=== PATIENT | male | born 1950 | race Caucasian/White ===

== ENCOUNTER 2018-06-03 00:53 | Outpatient (CLI) | payer MEDICARE, SELFPAY ==
[2018-06-03 08:11] LABS: ALT 17 U/L (12-78); AST 21 U/L (15-37); Albumin 2.8 g/dL (3.4-5.0); Alkaline Phosphatase 93 U/L (46-116); Anion Gap 12.5 mmol/L (3-11); BUN 31 mg/dL (7-18); Bilirubin, Total 0.8 mg/dL (0.2-1.0); CO2 22.5 mmol/L (21.0-32.0); CREATININE 0.79 mg/dL (0.70-1.30); Calcium 8.2 mg/dL (8.5-10.1); Chloride 97 mmol/L (98-107); Glucose 89 mg/dL (70-100); Potassium 4.3 mmol/L (3.5-5.1); Sodium 132 mmol/L (136-145); Total Protein 6.6 g/dL (6.4-8.2)
--- NOTE | 2018-06-03 08:44 | DI.CT_ITS ---
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 METASTATIC DISEASE, WT LOSS CORRECTED REPORT CHEST, ABDOMEN AND PELVIC CT: CT scan of the chest, abdomen and pelvis was performed following the uneventful administration of intravenous and oral contrast material. There are no priors for direct comparison. Comparison is made with report from [facility] dated 06/2017. ABDOMEN AND PELVIS: The liver is normal in size. No evidence of a hepatic mass is present. The portal, superior mesenteric and splenic veins are patent. The gallbladder is negative. There is no biliary ductal dilatation. The pancreas is unremarkable as is the spleen. There is nodularity of the left adrenal gland measuring 1.3 cm. The right adrenal gland is unremarkable. The kidneys show normal and symmetric enhancement. No evidence of a solid renal mass or obstruction. The urinary bladder is intact. The reproductive organs are unremarkable. There is atherosclerosis of the abdominal aorta but no aneurysmal dilatation is present. No significant pneumoperitoneum is seen. There may be a trace amount of free fluid in the right paracolic gutter. There is a large heterogeneous mass involving the cecum with significant bowel wall thickening. The whole mass-like area measures 9.1 cm. transverse by 7 cm. AP by 6.9 cm. craniocaudad. The remainder of the colon is decompressed. There is marked thickening of the wall of the small bowel beginning in the jejunum and extending to the ileocecal junction. There is diffuse thickening of the wall of the dilated small bowel. There appear to be mildly enlarged lymph nodes in the right lower quadrant. The largest measures 2.6 cm. by 1.7 cm. There are degenerative changes seen in the spine. No aggressive osseous lesion is identified. There is spondylolysis at L 5 and grade I spondylolisthesis of L 5 on S 1. IMPRESSION: 1. Obstructing soft tissue mass in the cecum highly suggestive of carcinoma. 2. Marked dilatation of the small bowel proximal to the cecal mass suggesting obstruction. 3. Left adrenal nodule. 4. Trace amount of abdominal free fluid in the right paracolic gutter. CHEST: There is calcification of the thoracic aorta. Heart size is within normal limits. No significant pericardial effusion is present. No significant thoracic adenopathy is identified. No pleural effusion or pneumothorax is identified. No pulmonary nodules are seen. The tracheobronchial tree is unremarkable. There is scarring seen in the lungs. No focal consolidating infiltrates are seen. Degenerative changes are seen in the spine. No aggressive osseous lesions are seen. IMPRESSION: No evidence of thoracic metastatic disease. Correction made to 4th impression from cul-de-sac to paracolic gutter.
[2018-06-03] MEDS: Omnipaque 350 MG/ML 100 ML BTL IJ (08:54)
[2018-06-03] MEDS: Omnipaque 350 MG/ML 50 ML BTL PO (08:54)
[2018-06-03] MEDS: Breeza Beverage 473 ML BTL PO (08:55)
== END 2018-06-03 01:13 ==
PROVIDERS: Visit Provider Colon & Rectal Surgery
DX: C18.0 Malignant neoplasm of cecum (principal); R63.4 Abnormal weight loss; K59.39 Other megacolon; E27.8 Other specified disorders of adrenal gland; R59.0 Localized enlarged lymph nodes
CPT/HCPCS: 74177; 80053; 71260; J3490; Q9967

== ENCOUNTER 2018-08-10 01:08 | Outpatient (CLI) | payer MEDICARE, SELFPAY ==
--- NOTE | 2018-08-10 09:30 | DI.CT_ITS ---
SYMPTOMS/DIAGNOSIS: COLON CA, S/P RT HEMICOLECTOMY RISING TUMOR MARKER, RESTAGING, C18.2 CT OF THE CHEST, ABDOMEN AND PELVIS: Comparison is made with [id number]. Images were performed for the clavicles through the ischial tuberosities after oral and IV contrast. CHEST CT: The aorta and pulmonary arteries are well opacified with IV contrast. No pulmonary emboli or aortic dissection is seen. There are pleural or pericardial effusions. Mild scarring is seen in the anterior right upper lobe. No pulmonary nodules, adenopathy or infiltrates are seen. No suspicious bony lesions are identified. Degenerative changes are again noted in the spine. IMPRESSION: No evidence of metastatic disease in the chest or other acute abnormality. ABDOMEN AND PELVIS CT: There is now a right sided ileostomy. There is no evidence of obstruction. Diverticulosis is noted in the lower descending and sigmoid colon. The liver, spleen, pancreas and right adrenal are unremarkable. Prominence of the left adrenal gland appears stable. There is a question of sludge in the gallbladder. No calcified stones, wall thickening or biliary dilatation is seen. The pancreas is unremarkable. The kidneys and spleen appear normal. There is now enlarged aortocaval adenopathy. A few small lymph nodes are seen to the left of the aorta and at the level of the head of the pancreas. The prostate appears mildly enlarged. The bladder is unremarkable. Severe degenerative changes as well as L 5 spondylolysis and L 5 - S 1 spondylolisthesis are again noted in the spine. Scoliosis is also present. No suspicious bony lesions are identified. IMPRESSION: 1. 2.4 cm aortocaval lymph node at the level of the head of the pancreas. A few other smaller para-aortic lymph nodes are seen. The patient is status post diverting ileostomy and there is no evidence of obstruction. No ascites is present.
[2018-08-10] MEDS: Omnipaque 350 MG/ML 100 ML BTL IJ (11:44)
[2018-08-11 09:38] LABS: CEA 57.5 ng/ml
== END 2018-08-10 01:28 ==
PROVIDERS: PCP General Practice; Visit Provider Internal Medicine Hematology & Oncology
DX: C18.2 Malignant neoplasm of ascending colon (principal); R59.0 Localized enlarged lymph nodes; Z93.2 Ileostomy status; R97.8 Other abnormal tumor markers; Z12.89 Encounter for screening for malignant neoplasm of other sites
CPT/HCPCS: 36415; 74177; 71260; 82378; J3490

== ENCOUNTER 2018-08-19 12:15 | Outpatient (CLI) | payer MEDICARE, SELFPAY ==
[2018-08-20 10:08] LABS: CEA 68.3 ng/ml
== END 2018-08-19 12:35 ==
PROVIDERS: PCP General Practice; Visit Provider Internal Medicine Hematology & Oncology
DX: C18.2 Malignant neoplasm of ascending colon (principal)
CPT/HCPCS: 36415; 82378

== ENCOUNTER 2018-08-31 10:15 | Outpatient (CLI) | payer MEDICARE, SELFPAY ==
[2018-08-31 10:44] LABS: Abs Immature Grans 0.01 k/cumm (0.0-0.09); Absolute Basophil Count 0.05 k/cumm (0.0-0.2); Absolute Eosinophil Count 0.17 k/cumm (0.0-0.7); Absolute Lymphocyte Count 1.66 k/cumm (1.2-3.4); Absolute Monocyte Count 0.34 k/cumm (0.11-0.7); Absolute Neutrophil Count 3.66 k/cumm (1.2-6.7); Basophils % 0.8; Eosinophils % 2.9; HCT 34.2 % (40.0-50.0); HGB 10.8 g/dL (13.5-17.5); Immature Grans % 0.2; Lymphocytes % 28.2; Mean Corp. HGB Concentration 31.6 g/dL (32.0-36.0); Mean Corpuscular Hemoglobin 28.4 pg (27.0-33.0); Mean Platelet Volume 10.1 fL (8.0-11.0); Monocytes % 5.8; Neutrophils % 62.1; Platelet Count 358 x1000/uL (130-400); White Blood Cell Count 5.89 k/cumm (4.4-10.8)
[2018-08-31 10:56] LABS: ALT 20 U/L (12-78); AST 14 U/L (15-37); Albumin 3.5 g/dL (3.4-5.0); Alkaline Phosphatase 74 U/L (46-116); Anion Gap 10.3 mmol/L (3-11); BUN 16 mg/dL (7-18); Bilirubin, Total 0.1 mg/dL (0.2-1.0); CO2 21.7 mmol/L (21.0-32.0); CREATININE 0.67 mg/dL (0.70-1.30); Calcium 8.8 mg/dL (8.5-10.1); Chloride 104 mmol/L (98-107); Glucose 98 mg/dL (70-100); Potassium 4.3 mmol/L (3.5-5.1); Sodium 136 mmol/L (136-145); Total Protein 7.6 g/dL (6.4-8.2)
== END 2018-08-31 10:35 ==
PROVIDERS: PCP General Practice; Visit Provider Internal Medicine Hematology & Oncology
DX: C18.2 Malignant neoplasm of ascending colon (principal)
CPT/HCPCS: 36415; 80053; 85025

== ENCOUNTER 2018-09-07 09:20 | Outpatient (REF) | payer MEDICARE, SELFPAY ==
[2018-09-07 09:33] LABS: Abs Immature Grans 0.01 k/cumm (0.0-0.09); Absolute Basophil Count 0.07 k/cumm (0.0-0.2); Absolute Eosinophil Count 0.15 k/cumm (0.0-0.7); Absolute Lymphocyte Count 1.69 k/cumm (1.2-3.4); Absolute Monocyte Count 0.38 k/cumm (0.11-0.7); Absolute Neutrophil Count 2.84 k/cumm (1.2-6.7); Basophils % 1.4; Eosinophils % 2.9; HCT 32.6 % (40.0-50.0); HGB 10.1 g/dL (13.5-17.5); Immature Grans % 0.2; Lymphocytes % 32.9; Mean Corpuscular Hemoglobin 28.1 pg (27.0-33.0); Mean Corpuscular Volume 90.8 fL (80-95); Mean Platelet Volume 10.3 fL (8.0-11.0); Monocytes % 7.4; Neutrophils % 55.2; Platelet Count 312 x1000/uL (130-400); RBC 3.59 m/cumm (4.50-6.00); RBC Distribution Width 15.5 % (11.8-14.1); White Blood Cell Count 5.14 k/cumm (4.4-10.8)
[2018-09-07 09:38] LABS: ALT 21 U/L (12-78); AST 16 U/L (15-37); Albumin 3.4 g/dL (3.4-5.0); Alkaline Phosphatase 69 U/L (46-116); BUN 17 mg/dL (7-18); Bilirubin, Total 0.2 mg/dL (0.2-1.0); CREATININE 0.76 mg/dL (0.70-1.30); Calcium 8.7 mg/dL (8.5-10.1); Chloride 105 mmol/L (98-107); Glucose 84 mg/dL (70-100); Sodium 141 mmol/L (136-145); Total Protein 7.1 g/dL (6.4-8.2)
== END 2018-09-07 09:40 ==
LOC: LBN 09:20
PROVIDERS: PCP General Practice; Visit Provider Internal Medicine Hematology & Oncology
DX: C18.2 Malignant neoplasm of ascending colon (principal)
CPT/HCPCS: 80053; 85025

== ENCOUNTER 2018-09-17 01:43 | Outpatient (RCR) | payer MEDICARE, SELFPAY ==
[2018-09-17] MEDS: Normal Saline Flush 10 ML SYR IVP (08:55)
[2018-09-17 09:41] LABS: Abs Immature Grans 0.01 k/cumm (0.0-0.09); Absolute Basophil Count 0.05 k/cumm (0.0-0.2); Absolute Lymphocyte Count 1.48 k/cumm (1.2-3.4); Absolute Monocyte Count 0.47 k/cumm (0.11-0.7); Absolute Neutrophil Count 2.59 k/cumm (1.2-6.7); Basophils % 1.1; Eosinophils % 2.1; HCT 34.3 % (40.0-50.0); HGB 10.8 g/dL (13.5-17.5); Immature Grans % 0.2; Lymphocytes % 31.5; Mean Corp. HGB Concentration 31.5 g/dL (32.0-36.0); Mean Corpuscular Hemoglobin 28.3 pg (27.0-33.0); Mean Platelet Volume 9.8 fL (8.0-11.0); Neutrophils % 55.1; Platelet Count 302 x1000/uL (130-400); RBC 3.81 m/cumm (4.50-6.00); RBC Distribution Width 14.9 % (11.8-14.1)
[2018-09-17 09:50] LABS: ALT 23 U/L (12-78); AST 17 U/L (15-37); Albumin 3.9 g/dL (3.4-5.0); Alkaline Phosphatase 76 U/L (46-116); Anion Gap 13.2 mmol/L (3-11); BUN 20 mg/dL (7-18); Bilirubin, Total 0.3 mg/dL (0.2-1.0); CO2 21.8 mmol/L (21.0-32.0); CREATININE 0.83 mg/dL (0.70-1.30); Calcium 9.1 mg/dL (8.5-10.1); Chloride 103 mmol/L (98-107); Glucose 85 mg/dL (70-100); Potassium 4.6 mmol/L (3.5-5.1); Sodium 138 mmol/L (136-145); Total Protein 7.9 g/dL (6.4-8.2)
== END 2018-09-26 23:59 | disposition home or self-care (01) ==
LOC: INF 01:43
PROVIDERS: PCP General Practice; Visit Provider Internal Medicine Hematology & Oncology
DX: C18.2 Malignant neoplasm of ascending colon (principal); Z45.2 Encounter for adjustment and management of vascular access device
CPT/HCPCS: 36591; 80053; 85025

== ENCOUNTER 2018-10-22 01:29 | Outpatient (CLI) | payer MEDICARE, SELFPAY ==
[2018-10-22] MEDS: Omnipaque 350 MG/ML 100 ML BTL IJ (09:36)
[2018-10-22] MEDS: Breeza Beverage 473 ML BTL PO (09:37)
[2018-10-22] MEDS: Omnipaque 350 MG/ML 50 ML BTL PO (09:37)
--- NOTE | 2018-10-22 10:05 | DI.CT_ITS ---
SYMPTOM/DIAGNOSIS: CECAL CANCER C18.0 SEVERE PROTEIN CALORIE MALNUTRITION E43. RESTAGE CT CHEST , ABDOMEN AND PELVIS: Comparison is made with 10 Aug 2018. Images were performed from the clavicles through the ischial tuberosities after IV and oral contrast. CHEST CT: No pulmonary nodules or adenopathy is seen. There are no pleural or pericardial effusions or infiltrates. A port is noted over the right pectoral muscle with the tip in the caval atrial junction. The pulmonary arteries are well opacified with IV contrast and no pulmonary emboli are seen. Degenerative changes are noted in the spine. There are no aggressive bony lesions identified. IMPRESSION: No evidence of metastatic disease in the chest. CT ABDOMEN AND PELVIS: An ileostomy is again noted. There is a lesion in the lateral right lobe of the liver measuring 1.5 cm, new since the previous exam. There are also areas of low density nodularity along the inferior aspect of the liver as well as at the dome of the liver which are new when compared with the previous exam. There are multiple nodular densities seen along the anterior border of the perirenal fascia, anterolateral to the kidney and near the area of the ileocecal anastomosis. There is also nodular thickening of the fascia. Two areas of nodularity are now seen in the mesenteric fat anteriorly measuring 1.7 and 0.9 cm. Smaller nonspecific areas of nodularity are seen near the diverting ileal loop. There also has been interval enlargement of retroperitoneal lymph nodes at the level of the celiac axis, aortocaval and para-aortic regions. The largest node is again in the aortocaval region measuring 1.7 x 2 x 2.7 cm. No recurrent mass is seen in the region of the anastomosis. There is no evidence of obstruction. The urinary bladder is unremarkable except for a small diverticulum. The prostate is enlarged, unchanged. Degenerative changes and scoliosis are noted in the spine. Bilateral spondylolysis and L5-S1 spondylolisthesis are unchanged. IMPRESSION: Interval enlargement of retroperitoneal lymph nodes. New liver metastases. There are also metastatic lesions around the liver capsule inferior to the level of the liver along the perirenal fascia and in the anterior abdominal mesentery.
== END 2018-10-22 01:49 ==
PROVIDERS: PCP General Practice; Visit Provider Internal Medicine Hematology & Oncology
DX: C18.0 Malignant neoplasm of cecum (principal); C78.7 Secondary malignant neoplasm of liver and intrahepatic bile duct; E43 Unspecified severe protein-calorie malnutrition
CPT/HCPCS: 74177; 71260; J3490; Q9967

== ENCOUNTER 2018-10-22 02:20 | Outpatient (RCR) | payer MEDICARE, SELFPAY ==
[2018-10-01] MEDS: Normal Saline Flush 10 ML SYR IVP ×2 (08:25→10:11)
[2018-10-01] MEDS: Heparin 500 UNITS/5 ML SYRINGE IV ×2 (08:34→12:30)
[2018-10-01 08:37] LABS: Abs Immature Grans 0.02 k/cumm (0.0-0.09); Absolute Basophil Count 0.07 k/cumm (0.0-0.2); Absolute Eosinophil Count 0.07 k/cumm (0.0-0.7); Absolute Monocyte Count 0.56 k/cumm (0.11-0.7); Absolute Neutrophil Count 2.35 k/cumm (1.2-6.7); Basophils % 1.5; Eosinophils % 1.5; HCT 34.9 % (40.0-50.0); HGB 11.5 g/dL (13.5-17.5); Immature Grans % 0.4; Lymphocytes % 32.8; Mean Corpuscular Hemoglobin 28.8 pg (27.0-33.0); Mean Corpuscular Volume 87.5 fL (80-95); Mean Platelet Volume 9.5 fL (8.0-11.0); Monocytes % 12.3; Neutrophils % 51.5; Platelet Count 340 x1000/uL (130-400); RBC 3.99 m/cumm (4.50-6.00); RBC Distribution Width 14.8 % (11.8-14.1); White Blood Cell Count 4.57 k/cumm (4.4-10.8)
[2018-10-01 09:04] LABS: ALT 23 U/L (12-78); AST 11 U/L (15-37); Albumin 3.8 g/dL (3.4-5.0); Alkaline Phosphatase 81 U/L (46-116); Anion Gap 11.9 mmol/L (3-11); BUN 59 mg/dL (7-18); Bilirubin, Total 0.2 mg/dL (0.2-1.0); CO2 16.1 mmol/L (21.0-32.0); CREATININE 1.29 mg/dL (0.70-1.30); Calcium 8.7 mg/dL (8.5-10.1); Chloride 108 mmol/L (98-107); Estimated GFR 55.39 (mL/min/1.73m2); Glucose 101 mg/dL (70-100); Potassium 4.7 mmol/L (3.5-5.1); Sodium 136 mmol/L (136-145); Total Protein 7.8 g/dL (6.4-8.2)
[2018-10-01] MEDS: Normal Saline 2,000 ML 1000 ML IV (10:10)
[2018-10-04 11:13] LABS: CEA 232.6 ng/ml
[2018-10-15] MEDS: Normal Saline Flush 10 ML SYR IVP (08:17)
[2018-10-15 08:27] LABS: Abs Immature Grans 0.02 k/cumm (0.0-0.09); Absolute Basophil Count 0.06 k/cumm (0.0-0.2); Absolute Eosinophil Count 0.11 k/cumm (0.0-0.7); Absolute Lymphocyte Count 1.56 k/cumm (1.2-3.4); Absolute Monocyte Count 0.52 k/cumm (0.11-0.7); Absolute Neutrophil Count 2.59 k/cumm (1.2-6.7); Basophils % 1.2; Eosinophils % 2.3; HCT 32.1 % (40.0-50.0); HGB 10.5 g/dL (13.5-17.5); Immature Grans % 0.4; Lymphocytes % 32.1; Mean Corp. HGB Concentration 32.7 g/dL (32.0-36.0); Mean Corpuscular Hemoglobin 28.6 pg (27.0-33.0); Mean Corpuscular Volume 87.5 fL (80-95); Mean Platelet Volume 9.6 fL (8.0-11.0); Monocytes % 10.7; Neutrophils % 53.3; Platelet Count 242 x1000/uL (130-400); RBC 3.67 m/cumm (4.50-6.00); RBC Distribution Width 14.8 % (11.8-14.1); White Blood Cell Count 4.86 k/cumm (4.4-10.8)
[2018-10-15 08:49] LABS: ALT 42 U/L (12-78); AST 16 U/L (15-37); Albumin 3.5 g/dL (3.4-5.0); Alkaline Phosphatase 81 U/L (46-116); Anion Gap 12.8 mmol/L (3-11); BUN 32 mg/dL (7-18); Bilirubin, Total 0.1 mg/dL (0.2-1.0); CO2 18.2 mmol/L (21.0-32.0); CREATININE 0.87 mg/dL (0.70-1.30); Calcium 8.8 mg/dL (8.5-10.1); Chloride 107 mmol/L (98-107); Glucose 93 mg/dL (70-100); Potassium 4.4 mmol/L (3.5-5.1); Sodium 138 mmol/L (136-145); Total Protein 7.5 g/dL (6.4-8.2)
[2018-10-18 10:43] LABS: CEA 331.2 ng/ml
[2018-10-22] MEDS: Normal Saline Flush 10 ML SYR IVP (09:03)
[2018-10-22] MEDS: Heparin 500 UNITS/5 ML SYRINGE IV (09:04)
[2018-10-22 09:22] LABS: Abs Immature Grans 0.01 k/cumm (0.0-0.09); Absolute Basophil Count 0.03 k/cumm (0.0-0.2); Absolute Eosinophil Count 0.11 k/cumm (0.0-0.7); Absolute Lymphocyte Count 1.47 k/cumm (1.2-3.4); Absolute Monocyte Count 0.43 k/cumm (0.11-0.7); Absolute Neutrophil Count 2.06 k/cumm (1.2-6.7); Basophils % 0.7; Eosinophils % 2.7; HCT 34.5 % (40.0-50.0); HGB 11.5 g/dL (13.5-17.5); Immature Grans % 0.2; Lymphocytes % 35.8; Mean Corp. HGB Concentration 33.3 g/dL (32.0-36.0); Mean Corpuscular Hemoglobin 28.2 pg (27.0-33.0); Mean Corpuscular Volume 84.6 fL (80-95); Mean Platelet Volume 9.4 fL (8.0-11.0); Monocytes % 10.5; Neutrophils % 50.1; Platelet Count 248 x1000/uL (130-400); RBC 4.08 m/cumm (4.50-6.00); RBC Distribution Width 15.1 % (11.8-14.1); White Blood Cell Count 4.11 k/cumm (4.4-10.8)
[2018-10-22 09:42] LABS: ALT 41 U/L (12-78); AST 22 U/L (15-37); Alkaline Phosphatase 97 U/L (46-116); Anion Gap 14.2 mmol/L (3-11); BUN 53 mg/dL (7-18); Bilirubin, Total 0.4 mg/dL (0.2-1.0); CO2 17.8 mmol/L (21.0-32.0); CREATININE 1.34 mg/dL (0.70-1.30); Chloride 104 mmol/L (98-107); Estimated GFR 53.01 (mL/min/1.73m2); Glucose 93 mg/dL (70-100); Potassium 4.5 mmol/L (3.5-5.1); Sodium 136 mmol/L (136-145); Total Protein 8.4 g/dL (6.4-8.2)
[2018-10-25 11:11] LABS: CEA 440.8 ng/ml
== END 2018-10-27 23:59 | disposition home or self-care (01) ==
LOC: INF 02:20
PROVIDERS: PCP General Practice; Visit Provider Internal Medicine Hematology & Oncology
DX: C18.2 Malignant neoplasm of ascending colon (principal); Z45.2 Encounter for adjustment and management of vascular access device
CPT/HCPCS: 36591; 74177; 80053; 96360; 96361; 71260; 82378; 85025; J3490; Q9967

== ENCOUNTER 2018-11-19 03:09 | Outpatient (RCR) | payer MEDICARE, SELFPAY ==
[2018-11-12] MEDS: Normal Saline Flush 10 ML SYR IVP (07:15)
[2018-11-12 07:38] LABS: Abs Immature Grans 0.15 k/cumm (0.0-0.09); Absolute Basophil Count 0.06 k/cumm (0.0-0.2); Absolute Eosinophil Count 0.15 k/cumm (0.0-0.7); Absolute Lymphocyte Count 1.39 k/cumm (1.2-3.4); Absolute Monocyte Count 0.65 k/cumm (0.11-0.7); Basophils % 0.8; Eosinophils % 1.9; HCT 33.8 % (40.0-50.0); HGB 11.3 g/dL (13.5-17.5); Immature Grans % 1.9; Lymphocytes % 17.4; Mean Corp. HGB Concentration 33.4 g/dL (32.0-36.0); Mean Corpuscular Hemoglobin 29.4 pg (27.0-33.0); Mean Platelet Volume 9.4 fL (8.0-11.0); Monocytes % 8.1; Neutrophils % 69.9; Platelet Count 314 x1000/uL (130-400); RBC 3.84 m/cumm (4.50-6.00); RBC Distribution Width 17.2 % (11.8-14.1)
[2018-11-12 07:56] LABS: ALT 25 U/L (12-78); AST 16 U/L (15-37); Albumin 3.4 g/dL (3.4-5.0); Alkaline Phosphatase 84 U/L (46-116); BUN 35 mg/dL (7-18); Bilirubin, Total 0.3 mg/dL (0.2-1.0); CREATININE 1.17 mg/dL (0.70-1.30); Calcium 8.7 mg/dL (8.5-10.1); Chloride 104 mmol/L (98-107); FREE T4 0.99 ng/dL (0.76-1.46); Glucose 104 mg/dL (70-100); Potassium 4.9 mmol/L (3.5-5.1); Sodium 138 mmol/L (136-145); TSH 1.87 uIU/mL (0.36-3.74); Total Protein 7.9 g/dL (6.4-8.2)
[2018-11-19] MEDS: Normal Saline Flush 10 ML SYR IVP (07:10)
[2018-11-19 07:14] LABS: Abs Immature Grans 0.08 k/cumm (0.0-0.09); Absolute Basophil Count 0.06 k/cumm (0.0-0.2); Absolute Eosinophil Count 0.13 k/cumm (0.0-0.7); Absolute Lymphocyte Count 1.34 k/cumm (1.2-3.4); Absolute Monocyte Count 0.51 k/cumm (0.11-0.7); Absolute Neutrophil Count 4.02 k/cumm (1.2-6.7); Eosinophils % 2.1; HGB 10.3 g/dL (13.5-17.5); Immature Grans % 1.3; Lymphocytes % 21.8; Mean Corp. HGB Concentration 33.2 g/dL (32.0-36.0); Mean Corpuscular Hemoglobin 29.5 pg (27.0-33.0); Mean Corpuscular Volume 88.8 fL (80-95); Mean Platelet Volume 8.8 fL (8.0-11.0); Monocytes % 8.3; Neutrophils % 65.5; Platelet Count 418 x1000/uL (130-400); RBC 3.49 m/cumm (4.50-6.00); RBC Distribution Width 17.8 % (11.8-14.1); White Blood Cell Count 6.14 k/cumm (4.4-10.8)
[2018-11-19 07:27] LABS: ALT 31 U/L (12-78); AST 16 U/L (15-37); Albumin 2.9 g/dL (3.4-5.0); Alkaline Phosphatase 82 U/L (46-116); Anion Gap 11.7 mmol/L (3-11); BUN 20 mg/dL (7-18); Bilirubin, Total 0.2 mg/dL (0.2-1.0); CO2 23.3 mmol/L (21.0-32.0); CREATININE 0.95 mg/dL (0.70-1.30); Calcium 8.5 mg/dL (8.5-10.1); Chloride 105 mmol/L (98-107); Glucose 114 mg/dL (70-100); Potassium 3.7 mmol/L (3.5-5.1); Sodium 140 mmol/L (136-145); Total Protein 7.4 g/dL (6.4-8.2)
[2018-11-19 09:13] LABS: FREE T4 1.02 ng/dL (0.76-1.46); TSH 2.75 uIU/mL (0.36-3.74)
[2018-11-22 09:41] LABS: CEA 739.3 ng/ml
== END 2018-11-27 23:59 | disposition home or self-care (01) ==
LOC: INF 03:09
PROVIDERS: PCP General Practice; Visit Provider Internal Medicine Hematology & Oncology
DX: C18.2 Malignant neoplasm of ascending colon (principal); R53.83 Other fatigue; Z45.2 Encounter for adjustment and management of vascular access device
CPT/HCPCS: 36591; 80053; 82378; 84439; 84443; 85025

== ENCOUNTER 2018-12-17 12:59 | Outpatient (CLI) | payer MEDICARE, SELFPAY ==
--- NOTE | 2018-12-17 10:45 | DI.RAD_ITS ---
EXAM: XR CHEST 2V PA LATERAL INDICATION: PLEURAL EFFUSION J90. COMPARISON: No exams were available for comparison TECHNIQUE: 2D digital imaging was performed. FINDINGS: There is a small right pleural effusion. There is some volume loss involving the left lower lobe cons istent with a region of atelectasis. Remainder of the lung is clear. The heart is not enlarged. The h ilar structures, mediastinum and tracheal air column are intact. Port-A-Cath is identified ending in the distal portion of the superior vena cava.
== END 2018-12-17 13:19 ==
PROVIDERS: PCP General Practice; Visit Provider Registered Nurse Oncology
DX: J90 Pleural effusion, not elsewhere classified (principal); J98.11 Atelectasis; C18.9 Malignant neoplasm of colon, unspecified; R53.83 Other fatigue; Z45.2 Encounter for adjustment and management of vascular access device
CPT/HCPCS: 36591; 80053; 71046; 83615; 84439; 84443; 85025

== ENCOUNTER 2018-12-24 07:00 | Outpatient (RCR) | payer MEDICARE, SELFPAY ==
[2018-12-10] MEDS: Normal Saline Flush 10 ML SYR IVP (06:59)
[2018-12-10 07:10] LABS: Abs Immature Grans 0.12 k/cumm (0.0-0.09); Absolute Basophil Count 0.03 k/cumm (0.0-0.2); Absolute Eosinophil Count 0.01 k/cumm (0.0-0.7); Absolute Lymphocyte Count 1.44 k/cumm (1.2-3.4); Basophils % 0.3; Eosinophils % 0.1; HCT 32.3 % (40.0-50.0); Immature Grans % 1.1; Lymphocytes % 13.1; Mean Corpuscular Hemoglobin 29.7 pg (27.0-33.0); Mean Corpuscular Volume 95.8 fL (80-95); Mean Platelet Volume 8.5 fL (8.0-11.0); Monocytes % 5.7; Neutrophils % 79.7; RBC 3.37 m/cumm (4.50-6.00); RBC Distribution Width 18.9 % (11.8-14.1); White Blood Cell Count 10.96 k/cumm (4.4-10.8)
[2018-12-10 07:14] LABS: Absolute Monocyte Count 0.62 k/cumm (0.11-0.7); Absolute Neutrophil Count 8.74 k/cumm (1.2-6.7)
[2018-12-10 07:31] LABS: Anisocytosis 2+; Diff Comment RBC Morph Reviewed; Platelet Count 631 x1000/uL (130-400); Polychromasia Present
[2018-12-10 08:09] LABS: ALT 25 U/L (16-63); AST 22 U/L (15-37); Albumin 2.6 g/dL (3.4-5.0); Alkaline Phosphatase 88 U/L (46-116); Anion Gap 12.1 mmol/L (3-11); BUN 12 mg/dL (7-18); Bilirubin, Total 0.3 mg/dL (0.2-1.0); CO2 23.9 mmol/L (21.0-32.0); CREATININE 0.84 mg/dL (0.70-1.30); Calcium 8.1 mg/dL (8.5-10.1); Chloride 107 mmol/L (98-107); FREE T4 1.31 ng/dL (0.76-1.46); Glucose 126 mg/dL (70-100); Potassium 3.9 mmol/L (3.5-5.1); Sodium 143 mmol/L (136-145); TSH 1.08 uIU/mL (0.36-3.74); Total Protein 6.7 g/dL (6.4-8.2)
[2018-12-14 13:17] LABS: CEA 1038.4 ng/ml
[2018-12-17] MEDS: Normal Saline Flush 10 ML SYR IVP (11:06)
[2018-12-17 11:17] LABS: Abs Immature Grans 0.82 k/cumm (0.0-0.09); HCT 40.3 % (40.0-50.0); HGB 12.6 g/dL (13.5-17.5); Mean Corp. HGB Concentration 31.3 g/dL (32.0-36.0); Mean Corpuscular Hemoglobin 29.9 pg (27.0-33.0); Mean Corpuscular Volume 95.5 fL (80-95); Mean Platelet Volume 8.9 fL (8.0-11.0); RBC 4.22 m/cumm (4.50-6.00); RBC Distribution Width 18.5 % (11.8-14.1); White Blood Cell Count 18.44 k/cumm (4.4-10.8)
[2018-12-17 11:46] LABS: Absolute Lymphocyte Count 1.84 k/cumm (1.2-3.4); Absolute Monocyte Count 0.74 k/cumm (0.11-0.7); Diff Comment Manual Differential; Platelet Count 658 x1000/uL (130-400)
[2018-12-17 11:47] LABS: Anisocytosis 2+; Polychromasia Present
[2018-12-17 11:48] LABS: Absolute Neutrophil Count 15.31 k/cumm (1.2-6.7); Nucleated RBC 1 /100WBC
[2018-12-17 11:59] LABS: ALT 20 U/L (16-63); AST 18 U/L (15-37); Alkaline Phosphatase 78 U/L (46-116); Anion Gap 13.1 mmol/L (3-11); BUN 34 mg/dL (7-18); Bilirubin, Total 0.4 mg/dL (0.2-1.0); CO2 22.9 mmol/L (21.0-32.0); CREATININE 1.08 mg/dL (0.70-1.30); Calcium 8.6 mg/dL (8.5-10.1); Chloride 103 mmol/L (98-107); Glucose 126 mg/dL (70-100); Potassium 4.3 mmol/L (3.5-5.1); Sodium 139 mmol/L (136-145); Total Protein 7.3 g/dL (6.4-8.2)
[2018-12-17 15:48] LABS: LDH 262 U/L (85-227)
[2018-12-24] MEDS: Normal Saline Flush 10 ML SYR IVP (07:21)
[2018-12-24 07:35] LABS: Abs Immature Grans 0.09 k/cumm (0.0-0.09); Absolute Basophil Count 0.02 k/cumm (0.0-0.2); Absolute Eosinophil Count 0.02 k/cumm (0.0-0.7); Absolute Lymphocyte Count 1.11 k/cumm (1.2-3.4); Absolute Monocyte Count 0.56 k/cumm (0.11-0.7); Absolute Neutrophil Count 5.98 k/cumm (1.2-6.7); Basophils % 0.3; Eosinophils % 0.3; HCT 36.5 % (40.0-50.0); HGB 11.5 g/dL (13.5-17.5); Immature Grans % 1.2; Lymphocytes % 14.3; Mean Corp. HGB Concentration 31.5 g/dL (32.0-36.0); Mean Corpuscular Hemoglobin 30.4 pg (27.0-33.0); Mean Corpuscular Volume 96.6 fL (80-95); Mean Platelet Volume 9.3 fL (8.0-11.0); Monocytes % 7.2; Neutrophils % 76.7; Platelet Count 444 x1000/uL (130-400); RBC 3.78 m/cumm (4.50-6.00); RBC Distribution Width 17.2 % (11.8-14.1); White Blood Cell Count 7.78 k/cumm (4.4-10.8)
[2018-12-24 07:47] LABS: ALT 18 U/L (16-63); AST 18 U/L (15-37); Albumin 2.9 g/dL (3.4-5.0); Alkaline Phosphatase 71 U/L (46-116); BUN 17 mg/dL (7-18); Bilirubin, Total 0.5 mg/dL (0.2-1.0); CREATININE 1.03 mg/dL (0.70-1.30); Calcium 8.3 mg/dL (8.5-10.1); Chloride 105 mmol/L (98-107); Glucose 143 mg/dL (70-100); Potassium 3.7 mmol/L (3.5-5.1); Sodium 140 mmol/L (136-145); Total Protein 6.8 g/dL (6.4-8.2)
[2018-12-29 16:35] LABS: CEA 1780.7 ng/ml
== END 2018-12-27 23:59 | disposition home or self-care (01) ==
LOC: INF 07:00
PROVIDERS: PCP General Practice; Visit Provider Internal Medicine Hematology & Oncology
DX: C18.9 Malignant neoplasm of colon, unspecified (principal); R53.83 Other fatigue; Z45.2 Encounter for adjustment and management of vascular access device
CPT/HCPCS: 36591; 80053; 82378; 83615; 84439; 84443; 85025

== ENCOUNTER 2019-01-21 02:07 | Outpatient (RCR) | payer MEDICARE, SELFPAY ==
[2018-12-31 09:20] LABS: Absolute Basophil Count 0.02 k/cumm (0.0-0.2); Absolute Eosinophil Count 0.02 k/cumm (0.0-0.7); Absolute Lymphocyte Count 1.14 k/cumm (1.2-3.4); Absolute Monocyte Count 0.42 k/cumm (0.11-0.7); Absolute Neutrophil Count 5.91 k/cumm (1.2-6.7); Basophils % 0.3; Eosinophils % 0.3; HCT 34.8 % (40.0-50.0); HGB 11.2 g/dL (13.5-17.5); Immature Grans % 1.3; Mean Corp. HGB Concentration 32.2 g/dL (32.0-36.0); Mean Corpuscular Hemoglobin 31.4 pg (27.0-33.0); Mean Corpuscular Volume 97.5 fL (80-95); Mean Platelet Volume 8.9 fL (8.0-11.0); Monocytes % 5.5; Neutrophils % 77.6; Platelet Count 354 x1000/uL (130-400); RBC 3.57 m/cumm (4.50-6.00); RBC Distribution Width 16.1 % (11.8-14.1); White Blood Cell Count 7.61 k/cumm (4.4-10.8)
[2018-12-31 09:47] LABS: ALT 16 U/L (16-63); AST 18 U/L (15-37); Albumin 2.6 g/dL (3.4-5.0); Alkaline Phosphatase 70 U/L (46-116); Anion Gap 11.6 mmol/L (3-11); BUN 13 mg/dL (7-18); Bilirubin, Total 0.4 mg/dL (0.2-1.0); CO2 23.4 mmol/L (21.0-32.0); CREATININE 0.96 mg/dL (0.70-1.30); Chloride 104 mmol/L (98-107); FREE T4 1.28 ng/dL (0.76-1.46); Glucose 141 mg/dL (70-100); Potassium 3.8 mmol/L (3.5-5.1); Sodium 139 mmol/L (136-145); TSH 1.21 uIU/mL (0.36-3.74); Total Protein 6.7 g/dL (6.4-8.2)
[2018-12-31] MEDS: Normal Saline Flush 10 ML SYR IVP (10:03)
[2019-01-07 07:47] LABS: Abs Immature Grans 0.07 k/cumm (0.0-0.09); Absolute Basophil Count 0.01 k/cumm (0.0-0.2); Absolute Lymphocyte Count 0.81 k/cumm (1.2-3.4); Absolute Monocyte Count 0.41 k/cumm (0.11-0.7); Absolute Neutrophil Count 6.18 k/cumm (1.2-6.7); Basophils % 0.1; HCT 35.4 % (40.0-50.0); HGB 11.3 g/dL (13.5-17.5); Immature Grans % 0.9; Lymphocytes % 10.8; Mean Corp. HGB Concentration 31.9 g/dL (32.0-36.0); Mean Corpuscular Hemoglobin 30.9 pg (27.0-33.0); Mean Corpuscular Volume 96.7 fL (80-95); Mean Platelet Volume 8.7 fL (8.0-11.0); Monocytes % 5.5; Neutrophils % 82.7; Platelet Count 423 x1000/uL (130-400); RBC 3.66 m/cumm (4.50-6.00); RBC Distribution Width 15.6 % (11.8-14.1); White Blood Cell Count 7.48 k/cumm (4.4-10.8)
[2019-01-07 08:04] LABS: ALT 13 U/L (16-63); AST 21 U/L (15-37); Albumin 2.5 g/dL (3.4-5.0); Alkaline Phosphatase 71 U/L (46-116); BUN 15 mg/dL (7-18); Bilirubin, Total 0.4 mg/dL (0.2-1.0); CREATININE 1.01 mg/dL (0.70-1.30); Calcium 7.9 mg/dL (8.5-10.1); Chloride 103 mmol/L (98-107); Glucose 144 mg/dL (70-100); Sodium 139 mmol/L (136-145); Total Protein 6.5 g/dL (6.4-8.2)
[2019-01-07] MEDS: Normal Saline Flush 10 ML SYR IVP (08:26)
[2019-01-10 14:31] LABS: CEA 2370.6 ng/ml
[2019-01-21] MEDS: Normal Saline Flush 10 ML SYR IVP (07:40)
[2019-01-21 07:44] LABS: Abs Immature Grans 0.34 k/cumm (0.0-0.09); HCT 36.1 % (40.0-50.0); HGB 11.2 g/dL (13.5-17.5); Mean Corpuscular Hemoglobin 29.9 pg (27.0-33.0); Mean Corpuscular Volume 96.3 fL (80-95); Mean Platelet Volume 8.6 fL (8.0-11.0); Platelet Count 561 x1000/uL (130-400); RBC 3.75 m/cumm (4.50-6.00); White Blood Cell Count 4.36 k/cumm (4.4-10.8)
[2019-01-21 08:17] LABS: ALT 54 U/L (16-63); AST 29 U/L (15-37); Albumin 2.5 g/dL (3.4-5.0); Alkaline Phosphatase 95 U/L (46-116); Anion Gap 9.5 mmol/L (3-11); BUN 12 mg/dL (7-18); Bilirubin, Total 0.3 mg/dL (0.2-1.0); CO2 27.5 mmol/L (21.0-32.0); CREATININE 0.85 mg/dL (0.70-1.30); Chloride 104 mmol/L (98-107); FREE T4 1.25 ng/dL (0.76-1.46); Glucose 117 mg/dL (70-100); Potassium 4.2 mmol/L (3.5-5.1); Sodium 141 mmol/L (136-145); TSH 2.16 uIU/mL (0.36-3.74); Total Protein 6.3 g/dL (6.4-8.2)
[2019-01-21 08:23] LABS: Absolute Lymphocyte Count 1.18 k/cumm (1.2-3.4); Absolute Monocyte Count 0.35 k/cumm (0.11-0.7); Absolute Neutrophil Count 2.44 k/cumm (1.2-6.7); Diff Comment Manual Differential
[2019-01-21 08:24] LABS: Anisocytosis 2+; Polychromasia Present
[2019-01-21 08:25] LABS: Poikilocytes 1+
[2019-01-24 13:15] LABS: CEA 2055.8 ng/ml
== END 2019-01-27 23:59 | disposition home or self-care (01) ==
LOC: INF 02:07
PROVIDERS: PCP General Practice; Visit Provider Internal Medicine Hematology & Oncology
DX: C18.2 Malignant neoplasm of ascending colon (principal); R53.83 Other fatigue; Z45.2 Encounter for adjustment and management of vascular access device
CPT/HCPCS: 36591; 80053; 82378; 84439; 84443; 85025

== ENCOUNTER 2019-02-17 02:36 | Outpatient (RCR) | payer MEDICARE, SELFPAY ==
[2019-02-04] MEDS: Normal Saline Flush 10 ML SYR IVP (10:39)
[2019-02-04 11:01] LABS: Abs Immature Grans 0.55 k/cumm (0.0-0.09); HCT 33.9 % (40.0-50.0); HGB 10.4 g/dL (13.5-17.5); Mean Corp. HGB Concentration 30.7 g/dL (32.0-36.0); Mean Corpuscular Hemoglobin 28.9 pg (27.0-33.0); Mean Corpuscular Volume 94.2 fL (80-95); Mean Platelet Volume 8.6 fL (8.0-11.0); Platelet Count 620 x1000/uL (130-400); RBC Distribution Width 15.5 % (11.8-14.1); White Blood Cell Count 7.56 k/cumm (4.4-10.8)
[2019-02-04 11:15] LABS: Absolute Lymphocyte Count 1.74 k/cumm (1.2-3.4); Absolute Neutrophil Count 4.31 k/cumm (1.2-6.7)
[2019-02-04 11:16] LABS: Absolute Basophil Count 0.08 k/cumm (0.0-0.2); Absolute Monocyte Count 0.83 k/cumm (0.11-0.7); Anisocytosis 1+; Atypical Lymphocytes % 3; Diff Comment Manual Differential; Hypochromasia 1+; Polychromasia Present
[2019-02-04 11:23] LABS: ALT 23 U/L (16-63); AST 26 U/L (15-37); Albumin 2.3 g/dL (3.4-5.0); Alkaline Phosphatase 97 U/L (46-116); Anion Gap 11.3 mmol/L (3-11); BUN 19 mg/dL (7-18); Bilirubin, Total 0.2 mg/dL (0.2-1.0); CO2 26.7 mmol/L (21.0-32.0); CREATININE 1.19 mg/dL (0.70-1.30); Calcium 8.5 mg/dL (8.5-10.1); Chloride 99 mmol/L (98-107); Glucose 120 mg/dL (70-100); Potassium 4.7 mmol/L (3.5-5.1); Sodium 137 mmol/L (136-145); Total Protein 6.6 g/dL (6.4-8.2)
[2019-02-08 08:20] LABS: CEA 1907.8 ng/mL (See Note)
[2019-02-11 09:12] LABS: Abs Immature Grans 0.82 k/cumm (0.0-0.09); HCT 34.1 % (40.0-50.0); HGB 10.5 g/dL (13.5-17.5); Mean Corp. HGB Concentration 30.8 g/dL (32.0-36.0); Mean Corpuscular Hemoglobin 29.2 pg (27.0-33.0); Mean Platelet Volume 8.4 fL (8.0-11.0); Platelet Count 718 x1000/uL (130-400); RBC 3.59 m/cumm (4.50-6.00); RBC Distribution Width 16.4 % (11.8-14.1); White Blood Cell Count 15.17 k/cumm (4.4-10.8)
[2019-02-11 09:27] LABS: Absolute Lymphocyte Count 2.73 k/cumm (1.2-3.4); Absolute Monocyte Count 1.21 k/cumm (0.11-0.7); Absolute Neutrophil Count 10.92 k/cumm (1.2-6.7); Atypical Lymphocytes % 2
[2019-02-11 09:28] LABS: Diff Comment Manual Differential; Nucleated RBC 1 /100WBC
[2019-02-11] MEDS: Normal Saline Flush 10 ML SYR IVP (09:28)
[2019-02-11 09:29] LABS: Anisocytosis 2+; Hypochromasia 2+; Macrocytosis 1+; Poikilocytes 1+; Schistocytes 1+
[2019-02-11 09:38] LABS: ALT 15 U/L (16-63); AST 31 U/L (15-37); Albumin 2.2 g/dL (3.4-5.0); Alkaline Phosphatase 71 U/L (46-116); Anion Gap 10.5 mmol/L (3-11); BUN 22 mg/dL (7-18); Bilirubin, Total 0.2 mg/dL (0.2-1.0); CO2 26.5 mmol/L (21.0-32.0); CREATININE 1.01 mg/dL (0.70-1.30); Calcium 8.2 mg/dL (8.5-10.1); Chloride 102 mmol/L (98-107); Glucose 102 mg/dL (70-100); Potassium 3.9 mmol/L (3.5-5.1); Sodium 139 mmol/L (136-145); TSH 3.59 uIU/mL (0.36-3.74); Total Protein 6.4 g/dL (6.4-8.2)
[2019-02-15 16:09] LABS: CEA 2252.9 ng/mL (See Note)
== END 2019-02-26 23:59 | disposition home or self-care (01) ==
LOC: INF 02:36
PROVIDERS: PCP General Practice; Visit Provider Internal Medicine Hematology & Oncology
DX: C18.2 Malignant neoplasm of ascending colon (principal); R53.83 Other fatigue; Z45.2 Encounter for adjustment and management of vascular access device
CPT/HCPCS: 36591; 80053; 82378; 84443; 85025